=== PATIENT | male | born 1935 | race Caucasian/White ===

== ENCOUNTER 2016-12-18 14:38 | Emergency (ER) | payer MEDICARE, BC ==
[~2016-12-18] VITALS: Ht 177.8 cm; Wt 101.1 kg
[2016-12-18 15:04] VITALS: BP 115/69; PULSE 64; RESP 16; TEMP 98.3; O2SAT 97
[2016-12-18 16:03] VITALS: BP 121/60; PULSE 61; RESP 16; O2SAT 97
[2016-12-18] MEDS ORDERED: FERR1TAB58 PO (16:10)
[2016-12-18] MEDS ORDERED: COLA100C3 PO ×2 (16:10)
[2016-12-18] MEDS ORDERED: ROSU5 PO (16:10)
[2016-12-18] MEDS ORDERED: ASPI81CH CHEW (16:10)
[2016-12-18] MEDS ORDERED: AMIO0.1T PO (16:10)
[2016-12-18] MEDS ORDERED: PRAD75CA PO (16:10)
[2016-12-18] MEDS ORDERED: SODIUM CHLORIDE 0.9% FLUSH 5 ML FLUSH IVF PRN (16:45)
[2016-12-18 17:13] VITALS: BP 142/75; PULSE 58; RESP 16; O2SAT 100
[2016-12-18 17:17] LABS: AUTOMATED NEUTROPHIL # 3.1 TH/MM3 (1.8-7.7); BASOPHIL % 0.7 % (0.0-2.0); EOSINOPHIL # 0.1 TH/MM3 (0-0.4); EOSINOPHIL % 2.5 % (0.0-4.0); HEMATOCRIT 36.9 % (39.0-51.0); HEMO FLAGS DIFF FINAL; LYMPH % 24.6 % (9.0-44.0); LYMPHOCYTE # 1.2 TH/MM3 (1.0-4.8); MEAN CELL VOLUME 82.5 FL (80.0-100.0); MONO % 11.8 % (0.0-8.0); NEUT % 60.4 % (16.0-70.0); PLATELET COUNT 170 TH/MM3 (150-450); RED BLOOD COUNT 4.47 MIL/MM3 (4.50-5.90); RED CELL DISTRIBUTION WIDTH 15.4 % (11.6-17.2)
[2016-12-18 17:26] LABS: CHLORIDE 111 MEQ/L (98-107); POTASSIUM 4.4 MEQ/L (3.5-5.1); SODIUM (NA) 143 MEQ/L (136-145)
[2016-12-18 17:30] LABS: ANION GAP 7 MEQ/L (5-15); APTT (PATIENT) 50.2 SEC (24.3-30.1); BLOOD UREA NITROGEN 30 MG/DL (7-18); INTERNATIONAL NORMALIZED RATIO 1.2 RATIO; PROTHROMBIN TIME - PATIENT 12.9 SEC (9.8-11.6)
--- NOTE | 2016-12-18 17:31 | PD ---
HPI Chief Complaint: GI Complaint Time Seen by Provider: 16:27 Travel History International Travel<30 days: No Contact w/Intl Traveler<30days: No Traveled to known affect area: No History of Present Illness HPI This is an 80-year-old male who is on Prudoxin for atrial fibrillation who presents to the emergency department with bright red blood per rectum for 4 days , intermittent, describing prior a blood on his toilet paper when he wipes. He reports he has a history of hemorrhoids. His last colonoscopy was 7 years ago. He is having a lot of discomfort around his rectum but he's been having urinary incontinence and has been wearing diapers and he has a lot of excoriation on his buttocks. He denies any lightheadedness or dizziness. PFSH Past Medical History Hx Anticoagulant Therapy: Yes Cardiovascular Problems: Yes (a-fib) Diminished Hearing: No Medical other: Yes (partial adrenal gland removal) Tetanus Vaccination: > 5 Years Past Surgical History Appendectomy: Yes Social History Alcohol Use: Yes (occasionally) Tobacco Use: No Substance Use: No Allergies-Medications (Allergen,Severity, Reaction): Coded Allergies: No Known Allergies (Unverified , 12/18/16) Reported Meds & Prescriptions Reported Meds & Active Scripts Active Reported Crestor (Rosuvastatin Calcium) 5 Mg Tab 5 Mg PO DAILY Aspirin 81 Mg Chew 81 Mg CHEW DAILY Colace (Docusate Sodium) 100 Mg Cap 100 Mg PO DAILY Iron (Ferrous Sulfate) 50 Mg Tab 65 Mg PO DAILY Amiodarone (Amiodarone HCl) 100 Mg Tab 100 Mg PO DAILY Pradaxa (Dabigatran) 75 Mg Cap 75 Mg PO BID Review of Systems Except as stated in HPI: all other systems reviewed are Neg Physical Exam Narrative GENERAL:Well appearing, no acute distress SKIN: Warm and dry. HEAD: Atraumatic. Normocephalic. EYES: Pupils equal and round. No injection or drainage. ENT: Moist mucous membranes NECK: Trachea midline. CARDIOVASCULAR: Regular rate and rhythm. No murmur appreciated. RESPIRATORY: Clear to auscultation. Breath sounds equal bilaterally. GASTROINTESTINAL: Abdomen soft, non-tender, nondistended. Erythema and excoriation of the rectum with no obvious external hemorrhoids. No grossly bloody stool. MUSCULOSKELETAL: No obvious deformities. NEUROLOGICAL: Awake and alert. No obvious cranial nerve deficits. Moving all extremities. PSYCHIATRIC: Appropriate mood and affect; insight and judgment normal. Data Data Last Documented VS Vital Signs Date Time Temp Pulse Resp B/P Pulse Ox O2 Delivery O2 Flow Rate FiO2 12/18/16 17:13 58 16 142/75 100 Room Air 12/18/16 15:04 98.3 Orders Complete Blood Count With Diff (12/18/16 16:44) Comprehensive Metabolic Panel (12/18/16 16:44) Prothrombin Time / Inr (Pt) (12/18/16 16:44) Act Partial Throm Time (Ptt) (12/18/16 16:44) Type And Screen (12/18/16 16:44) Ecg Monitoring (12/18/16 16:44) Iv Access Insert/Monitor (12/18/16 16:44) Oximetry (12/18/16 16:44) Sodium Chloride 0.9% Flush (Ns Flush) (12/18/16 16:45) Labs Laboratory Tests Test 12/18/16 17:00 White Blood Count 5.0 TH/MM3 Red Blood Count 4.47 MIL/MM3 Hemoglobin 12.5 GM/DL Hematocrit 36.9 % Mean Corpuscular Volume 82.5 FL Mean Corpuscular Hemoglobin 28.0 PG Mean Corpuscular Hemoglobin 34.0 % Concent Red Cell Distribution Width 15.4 % Platelet Count 170 TH/MM3 Mean Platelet Volume 7.2 FL Neutrophils (%) (Auto) 60.4 % Lymphocytes (%) (Auto) 24.6 % Monocytes (%) (Auto) 11.8 % Eosinophils (%) (Auto) 2.5 % Basophils (%) (Auto) 0.7 % Neutrophils # (Auto) 3.1 TH/MM3 Lymphocytes # (Auto) 1.2 TH/MM3 Monocytes # (Auto) 0.6 TH/MM3 Eosinophils # (Auto) 0.1 TH/MM3 Basophils # (Auto) 0.0 TH/MM3 CBC Comment DIFF FINAL Differential Comment Prothrombin Time 12.9 SEC Prothromb Time International 1.2 RATIO Ratio Activated Partial 50.2 SEC Thromboplast Time Sodium Level 143 MEQ/L Potassium Level 4.4 MEQ/L Chloride Level 111 MEQ/L Carbon Dioxide Level 25.0 MEQ/L Anion Gap 7 MEQ/L Blood Urea Nitrogen 30 MG/DL Creatinine 1.30 MG/DL Estimat Glomerular Filtration 53 ML/MIN Rate Random Glucose 80 MG/DL Calcium Level 8.6 MG/DL Total Bilirubin 0.4 MG/DL Aspartate Amino Transf 22 U/L (AST/SGOT) Alanine Aminotransferase 28 U/L (ALT/SGPT) Alkaline Phosphatase 105 U/L Total Protein 7.0 GM/DL Albumin 3.2 GM/DL MDM Medical Decision Making Medical Screen Exam Complete: Yes Emergency Medical Condition: Yes Interpretation(s) Afebrile, no tachycardia, normotensive Anemia Electrolytes are reassuring Coags are slightly elevated consistent with Pradaxa use Differential Diagnosis Hemorrhoids, anal fissure, polyps, diverticulosis, AVM Narrative Course This is an 80-year-old male who presents to the emergency department with bright red blood per rectum on Pradaxa. He was placed on a monitor and an IV was established. He was found to be mildly anemic which she says is normal for him. On exam he has no obvious external hemorrhoids but does have excoriation in the setting of a diaper rash which may be the etiology of some of his symptoms. I recommended given his anticoagulant use that he be admitted to the hospital for monitoring and possible colonoscopy. He was very adamant that he did not want to stay in the hospital. I spoke to his daughter and his sister but they were unable to convince him to stay. He is not unstable. I don't think is unreasonable for him to follow up with GI as an outpatient. I would prefer that he hold his Pradaxa until then. I think they're going to talk to his primary care physician about this tomorrow morning. Patient was discharged home per his preference. [facility] Point of Care Internal Pos. & Neg. Controls: Passed Fecal Specimen Occult Blood: Positive Diagnosis Primary Impression: Bright red blood per rectum Referrals: [facility] Patient Instructions: General Instructions Additional Instructions: If you develop increasing rectal bleeding, lightheadedness, or dizziness return to the emergency room. Follow-up with a GI doctor as soon as possible. Hold your Pradaxa until then or discuss it with your primary care physician tomorrow morning. Med/Other Pt SpecificInfo: Existing Med Changed (hold Pradaxa until discussing with primary care physician or GI doctor.) Disposition: 01 DISCHARGE HOME Condition: Stable Betsey Chinag MD Dec 18, 2016 17:31
[2016-12-18 17:33] LABS: ALT (GPT) 28 U/L (12-78); AST (GOT) 22 U/L (15-37); GLOMERULAR FILTRATION RATE 53 ML/MIN (>89)
[2016-12-18 17:34] LABS: TOTAL BILIRUBIN ADULT 0.4 MG/DL (0.2-1.0)
[2016-12-18 17:35] LABS: ALKALINE PHOSPHATASE 105 U/L (45-117)
[2017-01-23] MEDS ORDERED: TERB250T4 PO (11:27)
[2017-02-09] MEDS ORDERED: PRAD75CA PO (16:49)
[2017-04-18] MEDS ORDERED: ROSU5 PO (14:00)
== END 2016-12-18 18:09 | disposition home or self-care (01) ==
LOC: PHED 14:38
DX: K62.5 Hemorrhage of anus and rectum (principal); I48.91 Unspecified atrial fibrillation
CPT/HCPCS: 80053; 85025; 85610; 85730; 86850; 86900; 86901; 99283

== ENCOUNTER 2017-04-28 12:20 | Emergency (ER) | payer MEDICARE, BC ==
[~2017-04-28] VITALS: Ht 175.3 cm; Wt 85.0 kg
[~2017-04-28 12:20] MED LIST: AMIO0.1T PO; ASPI81CH CHEW; COLA100C3 PO; FERR1TAB58 PO; PRAD75CA PO; ROSU5 PO; TERB250T4 PO
[2017-04-28 12:21] VITALS: BP 128/65; PULSE 64; RESP 16; TEMP 98.5; O2SAT 98
[2017-04-28] MEDS ORDERED: ferrous sulfate PO (13:00)
[2017-04-28] MEDS ORDERED: SODIUM CHLORIDE 0.9% FLUSH 10 ML FLUSH IVF PRN (13:00)
[2017-04-28] MEDS ORDERED: TAMS0.4C4 PO (13:01)
--- NOTE | 2017-04-28 13:08 | PD ---
HPI Chief Complaint: Complaint Time Seen by Provider: 13:00 Travel History International Travel<30 days: No Contact w/Intl Traveler<30days: No Traveled to known affect area: No History of Present Illness HPI 81-year-old male presents to the emergency department for evaluation and hematuria that worsened last night. Patient apparently had a transurethral resection of bladder tumor, TURBT, approximately 1.5-2 weeks ago In [facility] by Dr. Cordero. Please see his urologist, Dr. Wan Briones, here. He apparently also has a 5.2 cm abdominal aortic aneurysm. He saw Dr. Hines, vascular surgeon, who recommended that he do the procedure for the bladder cancer before he underwent repair of the aneurysm. The patient states he was told he would have bleeding after the procedure. However, he states it did worsen last night. He states it is improving. He reports mild dysuria with urination. He denies any fevers or chills. No chest pain or shortness of breath. No flank pain. No abdominal pain. No nausea, vomiting, diarrhea. Patient is on Pradaxa. He has a history of atrial fibrillation as well. PFSH Past Medical History Hx Anticoagulant Therapy: Yes (pradaxa) Atrial Fibrillation: Yes Cancer: Yes Cardiovascular Problems: Yes (a-fib) High Cholesterol: Yes Diminished Hearing: No Genitourinary: Yes Past Surgical History Appendectomy: Yes Social History Alcohol Use: Yes (occasionally) Tobacco Use: No Substance Use: No Allergies-Medications (Allergen,Severity, Reaction): Coded Allergies: No Known Allergies (Unverified , 04/28/17) Reported Meds & Prescriptions Reported Meds & Active Scripts Active Crestor (Rosuvastatin Calcium) 5 Mg Tab 5 Mg PO DAILY Pradaxa (Dabigatran) 75 Mg Cap 75 Mg PO BID Reported Tamsulosin (Tamsulosin HCl) 0.4 Mg Cap 0.4 Mg PO HS [ferrous sulfate] 65 Mg PO DAILY Aspirin 81 Mg Chew 81 Mg CHEW DAILY Amiodarone (Amiodarone HCl) 100 Mg Tab 100 Mg PO DAILY Review of Systems Except as stated in HPI: all other systems reviewed are Neg Physical Exam Narrative GENERAL: Well-nourished, well-developed elderly male patient, ambulatory with a walker. Afebrile. SKIN: Focused skin assessment warm/dry. HEAD: Normocephalic. Atraumatic. EYES: No scleral icterus. No injection or drainage. NECK: Supple, trachea midline. No JVD or lymphadenopathy. CARDIOVASCULAR: Regular rate and rhythm without murmurs, gallops, or rubs. RESPIRATORY: Breath sounds equal bilaterally. No accessory muscle use. Lungs sounds are clear to auscultation. GASTROINTESTINAL: Abdomen soft, non-tender, nondistended. No abdominal pain to palpation. MUSCULOSKELETAL: No cyanosis, or edema. BACK: Nontender without obvious deformity. No CVA tenderness. Data Data Last Documented VS Vital Signs Date Time Temp Pulse Resp B/P Pulse Ox O2 Delivery O2 Flow Rate FiO2 04/28/17 13:54 52 20 139/63 96 04/28/17 12:21 98.5 Orders Basic Metabolic Panel (Bmp) (04/28/17 12:58) Complete Blood Count With Diff (04/28/17 12:58) Ua Includes Microscopic (04/28/17 12:58) Sodium Chloride 0.9% Flush (Ns Flush) (04/28/17 13:00) Act Partial Throm Time (Ptt) (04/28/17 13:10) Prothrombin Time / Inr (Pt) (04/28/17 13:10) Ciprofloxacin (Cipro) (04/28/17 14:15) Labs Laboratory Tests Test 04/28/17 13:00 White Blood Count 5.5 TH/MM3 Red Blood Count 4.59 MIL/MM3 Hemoglobin 12.9 GM/DL Hematocrit 39.1 % Mean Corpuscular Volume 85.1 FL Mean Corpuscular Hemoglobin 28.1 PG Mean Corpuscular Hemoglobin 33.0 % Concent Red Cell Distribution Width 14.5 % Platelet Count 211 TH/MM3 Mean Platelet Volume 7.2 FL Neutrophils (%) (Auto) 68.3 % Lymphocytes (%) (Auto) 19.9 % Monocytes (%) (Auto) 9.9 % Eosinophils (%) (Auto) 1.1 % Basophils (%) (Auto) 0.8 % Neutrophils # (Auto) 3.8 TH/MM3 Lymphocytes # (Auto) 1.1 TH/MM3 Monocytes # (Auto) 0.5 TH/MM3 Eosinophils # (Auto) 0.1 TH/MM3 Basophils # (Auto) 0.0 TH/MM3 CBC Comment DIFF FINAL Differential Comment Prothrombin Time 11.2 SEC Prothromb Time International 1.0 RATIO Ratio Activated Partial 38.6 SEC Thromboplast Time Urine Color DARK-RED Urine Turbidity CLOUDY Urine pH 6.0 Urine Specific [place] 1.015 Urine Protein 100 mg/dL Urine Glucose (UA) NEG mg/dL Urine Ketones NEG mg/dL Urine Occult Blood LARGE Urine Nitrite NEG Urine Bilirubin NEG Urine Urobilinogen LESS THAN 2.0 MG/DL Urine Leukocyte Esterase NEG Urine RBC /hpf Urine WBC 69 /hpf Urine Bacteria FEW /hpf Microscopic Urinalysis Comment Sodium Level 141 MEQ/L Potassium Level 4.4 MEQ/L Chloride Level 108 MEQ/L Carbon Dioxide Level 24.9 MEQ/L Anion Gap 8 MEQ/L Blood Urea Nitrogen 33 MG/DL Creatinine 1.54 MG/DL Estimat Glomerular Filtration 43 ML/MIN Rate Random Glucose 121 MG/DL Calcium Level 9.0 MG/DL [facility] Medical Decision Making Medical Screen Exam Complete: Yes Emergency Medical Condition: Yes Medical Record Reviewed: Yes Differential Diagnosis UTI versus hematuria versus anemia versus bladder cancer versus urinary retention Narrative Course 81-year-old male presents to the emergency department for evaluation of worsening hematuria last night, although he states this is improving. CBC, BMP , PTT, PT/INR, UA are ordered and pending. CBC shows no acute abnormality. BMP shows elevated BUN at 33, creatinine 1.54. UA shows large occult blood, 69 WBC, few bacteria. Coags show no acute abnormality. Patient will be started on ciprofloxacin for UTI. He is encouraged to follow with Dr. Briones early next week. He is to return for any acute worsening of symptoms. The patient verbalizes agreement and understanding. I discussed all findings with my attending physician, Dr. Lee, who agrees on plan and disposition. The patient was discharged in stable condition with instructions, including return instructions and follow up instructions. Diagnosis Primary Impression: Urinary tract infection Qualified Code: N30.01 - Acute cystitis with hematuria Additional Impression: Hematuria Qualified Code: R31.0 - Gross hematuria Referrals: Urologist 2 days Patient Instructions: General Instructions, Urinary Tract Infection in Men (ED) Additional Instructions: Take antibiotic as directed until gone. Follow-up with Dr. Briones, your urologist. Return to the emergency department for any acute worsening of symptoms. Med/Other Pt SpecificInfo: Prescription(s) given Scripts Sulfamethoxazole-Trimethoprim (Bactrim DS)800-160 Mg Tab1 Tab PO BID #20 TAB Ref 0 Prov:Marilu Roblero 04/28/17 Disposition: 01 DISCHARGE HOME Condition: Stable Marilu Roblero Apr 28, 2017 13:08
[2017-04-28 13:22] LABS: AUTOMATED NEUTROPHIL # 3.8 TH/MM3 (1.8-7.7); BASOPHIL % 0.8 % (0.0-2.0); EOSINOPHIL # 0.1 TH/MM3 (0-0.4); EOSINOPHIL % 1.1 % (0.0-4.0); HEMATOCRIT 39.1 % (39.0-51.0); HEMO FLAGS DIFF FINAL; LYMPH % 19.9 % (9.0-44.0); LYMPHOCYTE # 1.1 TH/MM3 (1.0-4.8); MEAN CELL VOLUME 85.1 FL (80.0-100.0); MEAN CORPUSCULAR HEMOGLOBIN 28.1 PG (27.0-34.0); MONO % 9.9 % (0.0-8.0); NEUT % 68.3 % (16.0-70.0); PLATELET COUNT 211 TH/MM3 (150-450); RED BLOOD COUNT 4.59 MIL/MM3 (4.50-5.90); RED CELL DISTRIBUTION WIDTH 14.5 % (11.6-17.2); WHITE BLOOD COUNT 5.5 TH/MM3 (4.0-11.0)
[2017-04-28 13:32] LABS: APTT (PATIENT) 38.6 SEC (24.3-30.1); PROTHROMBIN TIME - PATIENT 11.2 SEC (9.8-11.6)
[2017-04-28 13:37] LABS: BACTERIA, URINE FEW /hpf; BLOOD, URINE LARGE (NEG); GLUCOSE,URINE NEG (NEG); KETONE, URINE NEG (NEG); NITRITE,URINE NEG (NEG)
[2017-04-28 13:43] LABS: URINE COLOR DARK-RED (YELLW/STRAW)
[2017-04-28 13:47] LABS: BICARBONATE 24.9 MEQ/L (21.0-32.0); POTASSIUM 4.4 MEQ/L (3.5-5.1)
[2017-04-28 13:54] VITALS: BP 139/63; PULSE 52; RESP 20; O2SAT 96
[2017-04-28] MEDS ORDERED: BACT800T5 PO (14:09)
[2017-04-28] MEDS ORDERED: SULFAMETHOXAZOLE-TRIMETHOPRIM DS 800-160 MG TAB PO ONE (14:15)
[2017-04-28] MEDS ORDERED: CIPROFLOXACIN 500 MG TAB PO ONE (14:15)
[2017-04-28 14:32] VITALS: BP 127/76
== END 2017-04-28 14:40 | disposition home or self-care (01) ==
LOC: NEPC 12:20
DX: N30.01 Acute cystitis with hematuria (principal); I48.91 Unspecified atrial fibrillation; E78.00 Pure hypercholesterolemia, unspecified; Z79.01 Long term (current) use of anticoagulants; I71.4 Abdominal aortic aneurysm, without rupture
CPT/HCPCS: 80048; 81001; 85025; 85610; 85730; 99283

== ENCOUNTER 2017-08-14 05:54 | Inpatient (IN) | payer MEDICARE, BC ==
[2017-08-14] VITALS (10 sets, daily range): BP systolic 125–149; BP diastolic 61–72; PULSE 68–74; RESP 16–19; TEMP 97.6–99; O2SAT 97–100
[~2017-08-14] VITALS: Ht 175.3 cm; Wt 117.0 kg
[~2017-08-14 05:54] MED LIST changes: -AMIO0.1T PO; -COLA100C3 PO; -FERR1TAB58 PO; +FERR325T8 PO; -TERB250T4 PO
[2017-08-14] MEDS ORDERED: INSULIN HUMAN REGULAR 1,000 UNITS/10 ML VIAL SQ PRN (06:15)
[2017-08-14] MEDS ORDERED: CHLORHEXIDINE GLUCONATE 2 % 1 PACK (2 CLOTHS) TOPICAL PRN (06:15)
[2017-08-14] MEDS ORDERED: METOPROLOL TARTRATE 25 MG TAB PO PRN (06:15)
[2017-08-14] MEDS ORDERED: POVIDONE IODINE 5% (ANTISEPSIS KIT) 4 APPLICATIONS EACH NARE PRN (06:15)
[2017-08-14] MEDS ORDERED: LACTATED RINGER'S 1000 ML IV PRN (06:15)
[2017-08-14] MEDS ORDERED: SODIUM CHLORID 0.9% 500 ML IV PRN (06:15)
[2017-08-14 06:40] LABS: AUTOMATED NEUTROPHIL # 3.5 TH/MM3 (1.8-7.7); BASOPHIL % 0.6 % (0.0-2.0); EOSINOPHIL # 0.1 TH/MM3 (0-0.4); EOSINOPHIL % 1.8 % (0.0-4.0); HEMATOCRIT 41.6 % (39.0-51.0); HEMO FLAGS DIFF FINAL; LYMPH % 25.1 % (9.0-44.0); LYMPHOCYTE # 1.4 TH/MM3 (1.0-4.8); MEAN CELL VOLUME 85.9 FL (80.0-100.0); MEAN CORPUSCULAR HEMOGLOBIN 29.2 PG (27.0-34.0); MONO % 9.3 % (0.0-8.0); NEUT % 63.2 % (16.0-70.0); PLATELET COUNT 194 TH/MM3 (150-450); RED BLOOD COUNT 4.84 MIL/MM3 (4.50-5.90); RED CELL DISTRIBUTION WIDTH 14.4 % (11.6-17.2); WHITE BLOOD COUNT 5.6 TH/MM3 (4.0-11.0)
[2017-08-14 07:00] LABS: APTT (PATIENT) 32.4 SEC (24.3-30.1); PROTHROMBIN TIME - PATIENT 10.7 SEC (9.8-11.6)
[2017-08-14 07:03] LABS: BICARBONATE 22.1 MEQ/L (21.0-32.0)
[2017-08-14] MEDS ORDERED: BUPIVACAINE HCL PF 0.5% 30 ML VIAL ONE (07:04)
[2017-08-14] MEDS ORDERED: PROTAMINE SULFATE 50 MG/5 ML VIAL ONE (07:04)
[2017-08-14] MEDS ORDERED: HEPARIN SODIUM - SQ 10,000 UNITS/ML VIAL ONE (07:04)
[2017-08-14] MEDS ORDERED: HEPARIN SODIUM - IV 10,000 UNITS/10 ML VIAL ONE (07:04)
[2017-08-14] MEDS: ceFAZolin 1,000 MG/NS 100 ML IV SCH ×4 (08:00→09:26)
[2017-08-14] MEDS ORDERED: IOHEXOL 300 MG/ML 100 ML BTL (for Rad CT) IVCONTRAST ONE (10:33)
[2017-08-14] MEDS ORDERED: DO NOT ADM ANY ANTICOAGULANT DRUGS PRN (10:49)
[2017-08-14] MEDS ORDERED: METOPROLOL TARTRATE 5 MG/5 ML VIAL IV PUSH PRN (11:45)
[2017-08-14] MEDS ORDERED: ONDANSETRON HCL 4 MG/2 ML VIAL IV PUSH PRN (11:45)
[2017-08-14] MEDS ORDERED: LACTATED RINGER'S 1000 ML INJ 500 ML IV ONE (11:45)
[2017-08-14] MEDS ORDERED: MORPHINE SULFATE 4 MG/ML INJ IV PUSH PRN (11:45)
--- NOTE | 2017-08-14 14:53 | EKG ---
Date Performed: 08/14/2017 Time Performed: 06:52:54 PTAGE: 81 years EKG: SINUS BRADYCARDIA WITH SHORT WA INTERVAL LEFT ANTERIOR FASCICULAR BLOCK PROBABLE SEPTAL JOHANA CARDIAL INFARCTION , OF INDETERMINATE AGE ABNORMAL ECG NO PREVIOUS TRACING DOCTOR: Cruzito Yin Interpretating Date/Time 08/14/2017 14:52:11
--- NOTE | 2017-08-14 23:26 | MP ---
cc: KATELYN HINES DATE OF SURGERY 08/14/17 PREOPERATIVE DIAGNOSIS Infrarenal abdominal aortic aneurysm - 5.4 cm diameter. POSTOPERATIVE DIAGNOSIS Infrarenal abdominal aortic aneurysm - 5.4 cm diameter. OPERATIVE PROCEDURE Percutaneous endovascular aneurysm repair SURGEON Tal Hines MD WET ROASTER LAKISHA Horner ANESTHESIA General endotracheal/local DESCRIPTION OF PROCEDURE With the patient in the supine position and under general endotracheal anesthesia, the abdomen, both groins and thighs were prepped with Betadine and draped in a sterile fashion. One gram of Ancef was administered intravenously. Following a protocol time-out, the skin and subcutaneous tissue overlying and surrounding the proposed femoral access sites were infiltrated with DICTATION INTERRUPTED HERE. Katelyn Hines MD JTS/ /4:55 PM /11:14 PM
--- NOTE | 2017-08-14 23:34 | MP ---
cc: EMELIA ZEPEDA MD, JAMES DATE OF SURGERY: 08/14/2017 PREOPERATIVE DIAGNOSIS: Renal abdominal aortic aneurysm - 5.4 cm diameter. POSTOPERATIVE DIAGNOSIS Renal abdominal aortic aneurysm - 5.4 cm diameter. PROCEDURE: Percutaneous endovascular aneurysm repair. SURGEON Breezy Hines MD. ASPHALT PATCHER: LAKISHA Gallo. ANESTHESIA: General endotracheal anesthesia/local. DESCRIPTION OF OPERATIVE PROCEDURE: With the patient in the supine position and under general endotracheal anesthesia, the abdomen, both groins and thighs were prepped with Betadine and draped in a sterile fashion. One gram of Ancef was administered intravenously and following a protocol time-out, the skin and subcutaneous tissue overlying and surrounding the proposed common femoral access sites infiltrated with 0.5% Marcaine with epinephrine. Utilizing ultrasound guidance in both the right and left mid common femoral arteries were accessed with 18 gauge needle, antegrade fashion. J-wires were advanced under fluoroscopic guidance into each iliac artery followed by deployment of 7-Burmese hemostatic sheaths over the guidewires. Angled glide wires were negotiated under fluoroscopic guidance into the suprarenal aorta. Perclose devices were pre-positioned at the 10 and 2 o'clock positions bilaterally. The 7-Burmese sheaths were introduced. The angled glide wires were exchanged over Berenstein catheters for Amplatz wires which were parked within the thoracic aorta. An 18 and a 12-Burmese hemostatic sheath was deployed via the right and left common femoral approach respectively. The patient was systemically heparinized with 5000 units. A marker pigtail catheter was positioned immediately cephalad to the renal arteries. Flush aortogram accurately delineated the origin of both renal arteries. The main body endoprosthesis was pre-positioned immediately distal to the origin of the renal arteries and initially deployed. The contralateral gate was engaged with an angled glide Berenstein catheter combination. A compliant balloon was inflated within the endoprosthetic lumen to ensure appropriate endoluminal localization. Retrograde sheath injection via the left femoral sheath with a marker pigtail catheter in place accurately delineated the left iliac bifurcation allowing for proper selection of the contralateral limb. The contralateral limb was placed appropriately and engaged. The main body endoprosthesis was completely deployed. A ortzi-bottom habilitation assistant was delivered on the right, ipsilateral side after retrograde sheath injection to delineate the right iliac bifurcation. The aortic and iliac seal zones and overlap areas were balloon dilated with a large compliant balloon. Completion angiogram with a marker pigtail catheter at the suprarenal level confirmed secure repair with no technical defects or evidence of the endoleak. The femoral sheaths were removed and hemostasis achieved with the pre-positioned Perclose devices. Heparin was reversed with 20 mg of protamine. There were no operative complications. The patient returned to the recovery room in stable condition with palpable pedal pulses bilaterally. MD ROSALINDA Rouse/DAVID /5:04 PM /11:18 PM
[2017-08-15] VITALS (17 sets, daily range): BP systolic 109–120; BP diastolic 55–67; PULSE 64–74; RESP 16; TEMP 97–98.1; O2SAT 94–98
[2017-08-15] MEDS ORDERED: DABIGATRAN ETEXILATE 75 MG CAP PO SCH (08:00)
[2017-08-15] MEDS ORDERED: ATORVASTATIN 10 MG TAB PO SCH (09:00)
[2017-08-15] MEDS ORDERED: ASPIRIN EC 81 MG TABEC PO SCH (09:00)
[2017-08-15] MEDS ORDERED: FERROUS SULFATE 325 MG (65 MG ELEMENTAL IRON) TAB PO SCH (09:00)
== END 2017-08-15 14:23 | disposition home or self-care (01) | DRG 269 ==
LOC: HSDI 05:54 → HCPC 12:42
PROVIDERS: ADMIT Surgery Vascular Surgery; ATTEND Surgery Vascular Surgery
PROC: 04V03DZ Restriction of Abdominal Aorta with Intraluminal Device, Percutaneous Approach (ICD-10-PCS; principal; 2017-08-14 08:04)
PROC: B4101ZZ Fluoroscopy of Abdominal Aorta using Low Osmolar Contrast (ICD-10-PCS; 2017-08-14 08:04)
DX: I71.4 Abdominal aortic aneurysm, without rupture (principal)
CPT/HCPCS: 80048; 85025; 85610; 85730; 86850; 86900; 86901; 86920; 93005; J0690; J1644; J2270; J2720; J7120; Q9967